=== PATIENT | male | born 1960 | race Caucasian/White ===

== ENCOUNTER 2017-11-26 16:49 | Emergency (ER) | payer SELFPAY ==
[~2017-11-26] VITALS: Ht 170.2 cm; Wt 72.2 kg
[2017-11-26 17:14] VITALS: BP 133/85
== END 2017-11-26 18:23 | disposition home or self-care (01) ==
LOC: ED 17:45
DX: L20.9 Atopic dermatitis, unspecified (principal); Z76.0 Encounter for issue of repeat prescription; F17.200 Nicotine dependence, unspecified, uncomplicated
CPT/HCPCS: 99283

== ENCOUNTER 2017-12-10 19:17 | Emergency (ER) | payer SELFPAY ==
[~2017-12-10] VITALS: Ht 170.2 cm; Wt 70.3 kg
[2017-12-10 19:22] VITALS: BP 109/77
== END 2017-12-10 19:48 | disposition home or self-care (01) ==
LOC: ED 19:34
DX: Z00.00 Encounter for general adult medical examination without abnormal findings (principal); F17.200 Nicotine dependence, unspecified, uncomplicated
CPT/HCPCS: 99281